=== PATIENT | male | born 1990 | race African-American/Black ===

== ENCOUNTER 2020-06-18 11:38 | Emergency (ER) | payer OTHER ==
[2020-06-18 11:49] VITALS: TEMP 98.5; BMI 20.3
[2020-06-18] MEDS ORDERED: predniSONE 20 MG TABLET (UD) PO ONE (12:05)
[2020-06-18] MEDS ORDERED: ALBUTEROL SO4 2.5/IPRATROPIUM 0.5 INH SOL 3 ML VIAL.NEB. NEB ONE (12:13)
[2020-06-18] MEDS ORDERED: predniSONE 20 MG TABLET (UD) ONE (12:13)
--- NOTE | 2020-06-18 12:16 | PDOC ---
*Physical Exam - Vital Signs Last Vital Signs Temp Pulse Resp BP Pulse Ox 98.5 F 88 22 H 138/92 100 06/18/20 11:43 06/18/20 11:43 06/18/20 11:43 06/18/20 11:43 06/18/20 11:43 Medical Decision Making - Critical Care Time Total Critical Care Time (minutes): 30 Critical Care Statement: The care of this patient involved high complexity decision making to prevent further life threatening deterioration of the patient's condition and/or to evaluate & treat vital organ system(s) failure or risk of failure. - Medical Decision Making 06/18/20 12:14 30y/o M p/w moderate to severe asthma exacerbation without associated hypoxia. r/o superimposed infection. nebs, steroids cxr reassess Discharge - Discharge Information Problems reviewed: Yes Clinical Impression/Diagnosis: Asthma exacerbation Qualifiers: Asthma severity: moderate Asthma persistence: unspecified Qualified Code(s): J45.901 - Unspecified asthma with (acute) exacerbation - Follow up/Referral Referrals: Tamir Santos MD [Primary Care Provider] - - Patient Discharge Instructions - Post Discharge Activity
--- OUTSIDE RECORDS SUMMARY | 2020-06-18 12:19 | XMS ---
:1990 Author Organization [facility] Care Team Providers Name Role Phone ED STAFF PHYSICIAN, STAFF Unavailable Unavailable ED STAFF PHYSICIANCEZAR Unavailable Unavailable ED STAFF PHYSICIANSAI Unavailable Unavailable Re-disclosure Warning The records that you are about to access may contain information from federally- assisted alcohol or drug abuse programs. If such information is present, then the following federally mandated warning applies: This information has been disclosed to you from records protected by federal confidentiality rules (42 CFR part 2). The federal rules prohibit you from making any further disclosure of this information unless further disclosure is expressly permitted by the written consent of the person to whom it pertains or as otherwise permitted by 42 CFR part 2. A general authorization for the release of medical or other information is NOT sufficient for this purpose. The Federal rules restrict any use of the information to criminally investigate or prosecute any alcohol or drug abuse patient.The records that you are about to access may contain highly sensitive health information, the redisclosure of which is protected by Article 27-F of the [place] State Public Health law. If you continue you may haveaccess to information: Regarding HIV / AIDS; Provided by facilities licensed or operated by the [facility] Office of Mental Health; or Provided by the [facility] Office for People With Developmental Disabilities. If such information is present, then the following [facility] mandated warning applies: This information has been disclosed to you from confidential records which are protected by state law. State law prohibits you from making any further disclosure of this information without the specific written consent of the person to whom it pertains, or as otherwise permitted by law. Any unauthorized further disclosure in violation of state law may result in a fine or detention sentence or both. A general authorization for the release of medical or other information is NOT sufficient authorization for further disclosure. Encounters Encounter Providers Location Date Indications Data Source(s ) Emergency Attender: CEZAR ED H 06/13/2020 [facility] STAFF 12:48:00 PM EDT Medical C enter PHYSICIANAttender: - 06/13/2020 STAFF ED STAFF 08:48:00 PM EDT PHYSICIANAdmitter: [facility] ED STAFF PHYSICIANReferrer: STAFF ED STAFF PHYSICIAN Patient discharged. Emergency Attender: ANI ED STAFF H 08/22/2019 12:41:00 AM [facility] PHYSICIANAttender: STAFF ED EST - 08/22/2019 Medical Center STAFF PHYSICIANAdmitter: 01:54:00 AM EST [facility] ED STAFF PHYSICIAN Patient discharged. Insurance Providers Payer name Policy type Policy ID Covered Covered constitution party's Policy P toya / Coverage constitution party ID relationship to Lucia Inf ormation type lucia MVP [place]ICA[place] [id number] HMO O MVP/HHP O [id number] 01 [id number] MVP/HHP O [id number] 01 [id number] Problems, Conditions, and Diagnoses Code Display Name Description Problem Type Effective Data Dates Source(s) J45.909 Unspecified UNSPECIFIED Diagnosis 06/13/[address] [facility] asthma, ASTHMA, 12:48:00 PM Medical uncomplicated UNCOMPLICATED EDT Center R06.03 Acute respiratory ACUTE RESPIRATORY Diagnosis 06/13/2020 [facility] distress DISTRESS 12:48:00 PM Medical EDT Center Y99.9 Unspecified UNSPECIFIED Diagnosis 08/22/2019 [facility] external cause EXTERNAL CAUSE 12:41:00 AM Medic al status STATUS EST Center Y92.[address] IN UNSP Diagnosis 08/22/2019 [facility] in unspecified NON-INSTITUT 12:41:00 AM Medical non-institutional (PRIVATE) EST Center (private) RESIDENCE PLACE residence as the place of occurrence of the external cause Y93.9 Activity, ACTIVITY, Diagnosis 08/22/2019 [facility] unspecified UNSPECIFIED 12:41:00 AM Medical EST Center W01.0XXA Fall on same level FALL SAME LEV FROM Diagnosis 9 [facility] from slipping, SLIP/TRIP W/O 12:41:00 AM Medica l tripping and STRIKE AGAINST EST Center stumbling without OBJECT, INIT subsequent striking against object, initial encounter S01.112A Laceration without LACERATION W/O FB Diagnosis 08/22/2019 [facility] foreign body of OF LEFT EYELID AND 12:41:00 AM Medical left eyelid and PERIOCULAR AREA, EST Jovanny ter periocular area, INIT initial encounter S01.119A Laceration without LACERATION W/O FB Diagnosis 08/22/2019 [facility] foreign body of OF UNSP EYELID AND 12:41:00 AM Medical unspecified eyelid PERIOCULAR AREA, EST Center and periocular INIT area, initial encounter Results ID Date Data Source HematologyRou.[id number] 06/13/2020 02:34:00 PM EDT [facility] 0400 Name Value Range Interpretation Description Data Sup porting Code Source(s) Document(s ) Hemoglobin 13.5-17. Below low normal <content [facility] [Mass/volume] in 5 styleCode="Bold Kermit Blood ">Hemoglobin Medical </content>13.4 Center G/DL L<content styleCode="Ital ics"> (13.5-17.5 G/DL)</content> Leukocytes 4.4-11.0 <content [facility] [#/volume] in styleCode="Bold Kermit Blood by ">White Blood Medical Automated count Cell Count Center </content>5.50 KCUMM<content styleCode="Ital ics"> (4.4-11.0 KCUMM)</content > Erythrocytes 4.4-5.9 <content [facility] [#/volume] in styleCode="Bold Kermit Blood by ">Red Blood Medical Automated count Cell Count Center </content>4.43 MCUMM<content styleCode="Ital ics"> (4.4-5.9 MCUMM)</content > Erythrocyte mean 80.0-100 <content [facility] corpuscular .0 styleCode="Bold Kermit volume [Entitic ">Mean Medical volume] by Corpuscular Center Automated count Volume </content>89.6 FL<content styleCode="Ital ics"> (80.0-100.0 FL)</content> Hematocrit 41.0-53. Below low normal <content [facility] [Volume 0 styleCode="Bold Kermit Fraction] of ">Hematocrit Medical Blood by </content>39.7 Center Automated count % L<content styleCode="Ital ics"> (41.0-53.0 %)</content> Erythrocyte mean 26.0-34. <content [facility] corpuscular 0 styleCode="Bold Kermit hemoglobin ">Mean Medical [Entitic mass] Corposcular Center by Automated Hemoglobin count </content>30.2 PG<content styleCode="Ital ics"> (26.0-34.0 PG)</content> Erythrocyte mean 32.0-37. <content [facility] corpuscular 0 styleCode="Bold Kermit hemoglobin ">Mean Corpus. Medical concentration Hgb Center [Mass/volume] by Concentration Automated count (MCHC) </content>33.8 G/DL<content styleCode="Ital ics"> (32.0-37.0 G/DL)</content> UNK 0 <content Saint styleCode="Bold Kermit ">Nucleated Red Medical Blood Cell Center </content>0.0 /100<content styleCode="Ital ics"> (0 /100)</content> Platelets 130-400 <content Saint [#/volume] in styleCode="Bold Kermit Blood by ">Platelet Medical Automated count Count Center </content>152 KCUMM<content styleCode="Ital ics"> (130-400 KCUMM)</content > Platelet mean 8.0-11.0 <content Saint volume [Entitic styleCode="Bold Kermit volume] in Blood ">Mean Platelet Medical by Automated Volume Center count </content>9.6 FL<content styleCode="Ital ics"> (8.0-11.0 FL)</content> Erythrocyte 11.5-14. <content [facility] distribution 5 styleCode="Bold Kermit width [Ratio] by ">Red Cell Medical Automated count Distribution Center Width </content>12.9 %<content styleCode="Ital ics"> (11.5-14.5 %)</content> UNK 0.0 <content Saint styleCode="Bold Kermit ">Nucleated Red Medical Blood Cell Center Count </content>0.00 KCUMM<content styleCode="Ital ics"> (0.0 KCUMM)</content > ID Date Data Source Liver 06/13/2020 01:09:00 PM EDT [facility] Profile.[id number] Name Value Range Interpretation Description Data Sup porting Code Source(s) Document(s ) Aspartate 17-59 Above high <content [facility] aminotransferase normal styleCode="Bold"> [facility] hs [Enzymatic Aspartate Medical activity/volume] Aminotransferase Center in Serum or Plasma (AST) </content>62 IU/L H<content styleCode="Italic s"> (17-59 IU/L)</content> Bilirubin.total 0.2-1.3 <content [facility] [Mass/volume] in styleCode="Bold"> Paddy hs Serum or Plasma Bilirubin Total Medical </content>0.9 Center MG/DL<content styleCode="Italic s"> (0.2-1.3 MG/DL)</content> Alkaline 38-126 <content [facility] phosphatase styleCode="Bold"> Kermit [Enzymatic Alkaline Medical activity/volume] Phosphatase (ALP) Cente r in Serum or Plasma </content>68 IU/L<content styleCode="Italic s"> (38-126 IU/L)</content> UNK 0.0-0.3 <content Saint styleCode="Bold"> Kermit Bilirubin, Direct Medical </content>< 0.2 Center MG/DL<content styleCode="Italic s"> (0.0-0.3 MG/DL)</content> Alanine 7-50 <content [facility] aminotransferase styleCode="Bold"> P[facility] hs [Enzymatic Alanine Medical activity/volume] Aminotransferase Center in Serum or Plasma (ALT) </content>26 IU/L<content styleCode="Italic s"> (7-50 IU/L)</content> Albumin 3.5-5.0 Above high <content [facility] [Mass/volume] in normal styleCode="Bold"> [facility] hs Serum or Plasma Albumin Medical </content>5.3 Center G/DL H<content styleCode="Italic s"> (3.5-5.0 G/DL)</content> ID Date Data Source HematologyRou.[id number] 06/13/2020 01:09:00 PM EDT [facility] 0400 Name Value Range Interpretation Description Data Sup porting Code Source(s) Document(s ) Leukocytes <content [facility] [#/volume] in styleCode="Bold" Kermit Blood by >White Blood Medical Automated count Cell Count Center </content>Test not performed. KCUMM (Reference Range: not available)
Erythrocytes <content Saint [#/volume] in styleCode="Bold" Kermit Blood by >Red Blood Cell Medical Automated count Count Center </content>Test not performed. MCUMM (Reference Range: not available)
Hemoglobin <content Saint [Mass/volume] in styleCode="Bold" Av s Blood >Hemoglobin Medical </content>Test Center not performed. G/DL (Reference Range: not available)
Erythrocyte mean <content [facility] corpuscular styleCode="Bold" Kermit volume [Entitic >Mean Medical volume] by Corpuscular Center Automated count Volume </content>Test not performed. FL (Reference Range: not available)
Erythrocyte mean <content [facility] corpuscular styleCode="Bold" Kermit hemoglobin >Mean Medical [Entitic mass] Corposcular Center by Automated Hemoglobin count </content>Test not performed. PG (Reference Range: not available)
Hematocrit <content Saint [Volume styleCode="Bold" Kermit Fraction] of >Hematocrit Medical Blood by </content>Test Center Automated count not performed. % (Reference Range: not available)
Erythrocyte mean <content [facility] corpuscular styleCode="Bold" Kermit hemoglobin >Mean Corpus. Medical concentration Hgb Center [Mass/volume] by Concentration Automated count (MCHC) </content>Test not performed. G/DL (Reference Range: not available)
Platelets <content Saint [#/volume] in styleCode="Bold" Kermit Blood by >Platelet Count Medical Automated count </content>Test Center not performed. KCUMM (Reference Range: not available)
UNK <content Saint styleCode="Bold" Kermit >Nucleated Red Medical Blood Cell Count Center </content>Test not performed. KCUMM (Reference Range: not available)
Erythrocyte <content Saint distribution styleCode="Bold" Kermit width [Ratio] by >Red Cell Medical Automated count Distribution Center Width </content>Test not performed. % (Reference Range: not available)
Platelet mean <content Saint volume [Entitic styleCode="Bold" Kermit volume] in Blood >Mean Platelet Medical by Automated Volume Center count </content>Test not performed. FL (Reference Range: not available)
UNK <content Saint styleCode="Bold" Kermit >Nucleated Red Medical Blood Cell Center </content>Test not performed. /100 (Reference Range: not available)
UNK <content Saint styleCode="Bold" Kermit >Immature Medical Platelet Center Fraction </content>Test not performed. % (Reference Range: not available)
ID Date Data Source GFR(Creatinine).[id number] 06/13/2020 01:09:00 PM EDT [facility] 0-0400 Name Value Range Interpretation Code Description Data Kezia rce(s) Supporting Document(s ) UNK > 60 <content [facility] styleCode="Bold"> Medical Cent er EGFR </content>126 GFR<content styleCode="Italic s"> (> 60 GFR)</content> ID Date Data Source Coagulation 06/13/2020 01:09:00 PM [facility] ical Center Rout.[id number] EDT Name Value Range Interpretation Description Data Sup porting Code Source(s) Document(s ) INR in 0.80-1.2 <content [facility] Platelet poor 0 styleCode="Bold" K[place] plasma by >INR Medical Coagulation </content>1.03 Center assay #<content styleCode="Itali cs"> (0.80-1.20 #)</content> UNK 9.0-13.0 <content Saint styleCode="Bold" Kermit >Protime Medical </content>11.4 Center SEC<content styleCode="Itali cs"> (9.0-13.0 SEC)</content> aPTT in 25.1-36. Below low normal <content [facility] Platelet poor 5 styleCode="Bold" Kermit plasma by >Partial Medical Coagulation Thromboplastin Center assay Time </content>24.6 SEC L<content styleCode="Itali cs"> (25.1-36.5 SEC)</content> ID Date Data Source [facility].[id number] 06/13/2020 01:09:00 PM EDT [facility] Name Value Range Interpretation Description Data Sup porting Code Source(s) Document(s ) Sodium 137-145 <content [facility] [Moles/volume] in styleCode="Bold"> Láz[facility] phs Serum or Plasma Sodium Medical </content>138 Center MEQ/L<content styleCode="Italic s"> (137-145 MEQ/L)</content> Potassium 3.5-5.3 <content [facility] [Moles/volume] in styleCode="Bold"> Láz[facility] Serum or Plasma Potassium Medical </content>3.9 Center MEQ/L<content styleCode="Italic s"> (3.5-5.3 MEQ/L)</content> Carbon dioxide, 22-30 Below low <content [facility] total normal styleCode="Bold"> Kermit [Moles/volume] in Carbon Dioxide Medical Serum or Plasma </content>20 Center MEQ/L L<content styleCode="Italic s"> (22-30 MEQ/L)</content> Glucose 74-106 <content [facility] [Mass/volume] in styleCode="Bold"> [facility] hs Serum or Plasma Glucose Medical </content>80 Center MG/DL<content styleCode="Italic s"> (74-106 MG/DL)</content> Chloride 98-107 <content [facility] [Moles/volume] in styleCode="Bold"> Lázaro phs Serum or Plasma Chloride Medical </content>102 Center MEQ/L<content styleCode="Italic s"> (98-107 MEQ/L)</content> Creatinine 0.5-1.3 <content [facility] [Mass/volume] in styleCode="Bold"> [facility] hs Serum or Plasma Creatinine Medical </content>0.9 Center MG/DL<content styleCode="Italic s"> (0.5-1.3 MG/DL)</content> UNK 9-20 <content Saint styleCode="Bold"> Kermit BUN </content>10 Medical MG/DL<content Center styleCode="Italic s"> (9-20 MG/DL)</content> Calcium 8.4-10. <content [facility] [Mass/volume] in 2 styleCode="Bold"> [facility] hs Serum or Plasma Calcium Medical </content>9.3 Center MG/DL<content styleCode="Italic s"> (8.4-10.2 MG/DL)</content> UNK > 60 <content Saint styleCode="Bold"> Kermti EGFR Medical </content>126 Center GFR<content styleCode="Italic s"> (> 60 GFR)</content> Alanine 7-50 <content [facility] aminotransferase styleCode="Bold"> [facility] hs [Enzymatic Alanine Medical activity/volume] Aminotransferase Center in Serum or Plasma (ALT) </content>26 IU/L<content styleCode="Italic s"> (7-50 IU/L)</content> Aspartate 17-59 Above high <content [facility] aminotransferase normal styleCode="Bold"> [facility] hs [Enzymatic Aspartate Medical activity/volume] Aminotransferase Center in Serum or Plasma (AST) </content>62 IU/L H<content styleCode="Italic s"> (17-59 IU/L)</content> Alkaline 38-126 <content [facility] phosphatase styleCode="Bold"> Kermit [Enzymatic Alkaline Medical activity/volume] Phosphatase (ALP) Cente r in Serum or Plasma </content>68 IU/L<content styleCode="Italic s"> (38-126 IU/L)</content> Bilirubin.total 0.2-1.3 <content [facility] [Mass/volume] in styleCode="Bold"> [facility] hs Serum or Plasma Bilirubin Total Medical </content>0.9 Center MG/DL<content styleCode="Italic s"> (0.2-1.3 MG/DL)</content> Albumin 3.5-5.0 Above high <content Saint [Mass/volume] in normal styleCode="Bold"> [facility] hs Serum or Plasma Albumin Medical </content>5.3 Center G/DL H<content styleCode="Italic s"> (3.5-5.0 G/DL)</content> ID Date Data Source CHMROUTINECCDA.[id number] 06/13/2020 01:05:00 PM EDT [facility] -0400 Name Value Range Interpretation Description Data Sup porting Code Source(s) Document(s ) Lactate 0.7-2.0 Above upper panic <content [place] s [Mass/volum limits styleCode="Bold Medical e] in Serum ">Lactic Acid Center or Plasma </content><cont ent styleCode="Bold ">3.3 MMOLL HH</content><co ntent styleCode="Ital ics"> (0.7-2.0 MMOLL)</content > Procedure Social History Code Duration Value Status Description Data Source(s ) Smoking 06/13/2020 Occasional Smoker completed Occasional Smoker [facility] 12:55:00 PM EDT Medical C enter Smoking 06/13/2020 Occasional Smoker completed Occasional Smoker [facility] 12:55:00 PM EDT Medical C enter Smoking 06/13/2020 Occasional Smoker completed Occasional Smoker [facility] 12:50:00 PM EDT Medical C enter Smoking 08/22/2019 Occasional Smoker completed Occasional Smoker [facility] 01:17:00 AM EST Medical C enter Vital Signs ID Date Data Source UNK Name Value Range Interpretation Code Description Data Source(s) Body temperature 36.043154 36.531078 Annelise [facility] Respiratory rate 18 /min 18 /min [facility] Oxygen saturation 97 % 97 % [facility] Victor Manuel osephs in Arterial blood Medical Center by Pulse oximetry Heart rate 92 /min 92 /min [facility] Diastolic blood 88 mm[Hg] 88 mm[Hg] [facility] pressure [facility] Center Systolic blood 144 mm[Hg] 144 mm[Hg] [facility] pressure [facility] Center Respiratory rate 18 /min 18 /min [facility] Oxygen saturation 97 % 97 % [facility] blood [facility] by Pulse oximetry Heart rate 88 /min 88 /min [facility] Diastolic blood 90 mm[Hg] 90 mm[Hg] [facility] Systolic blood 154 mm[Hg] 154 mm[Hg] [facility] Respiratory rate 20 /min 20 /min [facility] Oxygen saturation 100 % 100 % [facility] in Arterial blood [facility] Center by Pulse oximetry Heart rate 92 /min 92 /min [facility] Diastolic blood 90 mm[Hg] 90 mm[Hg] [facility] Systolic blood 144 mm[Hg] 144 mm[Hg] [facility] Heart rate 138 /min 138 /min [facility] Respiratory rate 24 /min 24 /min [facility] Oxygen saturation 100 % 100 % [facility] blood [facility] by Pulse oximetry Heart rate 100 /min 100 /min [facility] Diastolic blood 91 mm[Hg] 91 mm[Hg] [facility] Systolic blood 155 mm[Hg] 155 mm[Hg] [facility] Inhaled oxygen 100 % 100 % [facility] Medical [facility] ter Body weight 58.177027 58.490555 kg [facility] Body temperature 36.805235 36.437840 Annelise [facility] Respiratory rate 30 /min 30 /min [facility] Oxygen saturation 100 % 100 % [facility] blood [facility] by Pulse oximetry Inhaled oxygen 100 % 100 % [facility] Medical [facility] ter Diastolic blood 72 mm[Hg] 72 mm[Hg] [facility] Systolic blood 150 mm[Hg] 150 mm[Hg] [facility] Body temperature 36.933507 36.011142 Annelise [facility] Respiratory rate 16 /min 16 /min [facility] Oxygen saturation 98 % 98 % [facility] blood [facility] by Pulse oximetry Heart rate 74 /min 74 /min [facility] Diastolic blood 88 mm[Hg] 88 mm[Hg] [facility] Systolic blood 134 mm[Hg] 134 mm[Hg] [facility] Body temperature 36.556708 36.503803 Annelise [facility] Kermit [facility] Respiratory rate 20 /min 20 /min [facility] Oxygen saturation 99 % 99 % [facility] Victor Manuel holt in Arterial blood Medical Center by Pulse oximetry Heart rate 104 /min 104 /min [facility] Diastolic blood 98 mm[Hg] 98 mm[Hg] [facility] pressure [facility] Center Systolic blood 151 mm[Hg] 151 mm[Hg] [facility] pressure [facility]
[2020-06-18] MEDS: ALBUTEROL SO4 2.5/IPRATROPIUM 0.5 INH SOL 3 ML VIAL.NEB. NEB SCH ×4 (12:22→13:22)
--- NOTE | 2020-06-18 12:46 | PDOC ---
History of Present Illness - General Chief Complaint: Asthma Stated Complaint: DIFF BREATHING/ASTHMA Time Seen by Provider: 06/18/20 11:59 History Source: Patient Exam Limitations: No Limitations - History of Present Illness Initial Comments: 06/18/20 12:42 Patient is a 30-year-old male who presents to the ED with complaint of an asthma exacerbation that started this morning. He stayed at a friend's house who has a cat and he is allergic to cats. He states he was partying last night and everybody was smoking in the house. The patient states that he tried to use his albuterol MDI but it has not been helping. A similar asthma exacerbation happened last week and he went to [facility] and states he had nothing done. The patient states that they did not give him a new albuterol MDI and his inhaler was old. He denies any fevers or chills. He denies any cough. He states he is having trouble getting a deep breath in. He denies any known COVID contacts. Past History - Medical History Allergies/Adverse Reactions: Allergies Allergy/AdvReac Type Severity Reaction Status Date / Time lactose AdvReac Verified 06/18/20 11:43 Home Medications: Ambulatory Orders Pantoprazole Sodium [Protonix] 40 mg PO ONCE #20 tablet.ec 10/29/14 Sulfamethoxazole/Trimethoprim [Bactrim *Ds*] 1 tab PO BID #14 tablet 10/29/14 Albuterol Sulfate [Albuterol Sulfate Hfa] 2 puff IH Q4H PRN #1 hfa.aer.ad 06/18/20 predniSONE [Deltasone -] 60 mg PO DAILY #12 tablet 06/18/20 Asthma: Yes COPD: No - Psycho-Social/Smoking History Smoking History: Current every day smoker Have you smoked in the past 12 months: Yes Number of Cigarettes Smoked Daily: 0 Cigars Per Day: 0 Information on smoking cessation initiated: Yes - Substance Abuse Hx (Audit-C & DAST Scrn) How often the patient has a drink containing alcohol: Never Score: In Men: 4 or > Positive; In Women: 3 or > Positive: 0 Screen Result (Pos requires Nsg. Audit-10AR): Negative In the last yr the pt used illegal drug/Rx for NonMed reason: Yes Score: Yes response is considered Positive: 1 Screen Result (Positive result requires Nsg. DAST-10): Positive Review of Systems - Review of Systems Comments:: 06/18/20 12:44 - Review of Systems Able to Perform ROS?: Yes Constitutional: No: Fever, Chills, Loss of Appetite, Night Sweats, Weakness HEENTM: No: Eye Pain, Vision changes, Ear Pain, Throat Pain, Throat Swelling, Mouth Pain, Difficulty Swallowing Respiratory: No: Cough, Shortness of Breath, Wheezing, Sputum Production; positive: Chest tightness, asthma exacerbation Cardiac (ROS): No: Chest Pain, Chest Tightness, Palpitations, Irregular Heart Beat, Edema ABD/GI: No: Nausea, Vomiting, Abdominal Pain, Diarrhea : No Dysuria, No Hematuria, No Frequency, No Urgency Musculoskeletal: No: Muscle Pain, Back Pain, Joint Pain, Muscle Weakness, Neck Pain Integumentary: No: Lesions, Rash Neurological: No: Headache, Numbness, Tingling, Weakness, Speech Difficulties *Physical Exam - Vital Signs Last Vital Signs Temp Pulse Resp BP Pulse Ox 98.5 F 88 22 H 138/92 100 06/18/20 11:43 06/18/20 11:43 06/18/20 11:43 06/18/20 11:43 06/18/20 11:43 - Physical Exam 06/18/20 12:44 - Physical Exam General Appearance: Nourished, Appropriately Dressed, No Distress HEENT: EOMI, Normal Voice, Hearing Grossly Normal Neck: Supple, No Lymphadenopathy (R), No Lymphadenopathy (L), No Rigidity, No Decreased range of motion Respiratory/Chest: Lungs Clear, Normal Breath Sounds. No Respiratory Distress, No Accessory Muscle Use; no wheezing auscultated but slight rhonchi appreciated at the bilateral bases. Poor inspiratory effort. Cardiovascular: Regular Rhythm, Regular Rate, S1, S2 Gastrointestinal/Abdominal: Normal Bowel Sounds, Soft. Non-tender, No Guarding, No Rebound, No Rigidity Musculoskeletal: Normal Inspection. No Decreased Range of Motion Extremity: Normal Capillary Refill, Normal Inspection Integumentary: Normal Color, Dry. No Rash Neurologic: special educator II-XII NML intact, Fully Oriented, Alert, Normal Mood/Affect, Normal Response ED Treatment Course - RADIOLOGY Radiology Studies Ordered: Category Date Time Status CHEST PA & LAT [RAD] Stat Radiology 06/18/20 12:05 Completed - Medications Given in the ED: ED Medications Discontinued Medications Generic Name Dose Route Start Last Admin Trade Name Honey PRN Reason Stop Dose Admin Prednisone 60 mg 06/18/20 12:05 06/18/20 12:22 Deltasone - PO 06/18/20 12:06 60 mg ONCE ONE Administration Medical Decision Making - Medical Decision Making 06/18/20 12:45 Assessment: Patient is a 30-year-old male with an asthma exacerbation. Plan: -Parkb's x4 -Prednisone 60 mg p.o. given -Chest x-ray ordered -We will reassess 06/18/20 13:24 Patient's chest x-ray read by radiology as no acute pathology. He is gotten nebulizer treatments in the ED and 60 mg of prednisone. He states he is starting to feel better and his chest feels less tight. He would like to go home and get some rest. A prescription for an albuterol MDI and remaining 4 days of prednisone have been sent to the pharmacy. The patient has been given strict return precautions. He understands and agrees this treatment plan and he is stable for discharge. Discharge - Discharge Information Problems reviewed: Yes Clinical Impression/Diagnosis: Asthma exacerbation Qualifiers: Asthma severity: moderate Asthma persistence: unspecified Qualified Code(s): J45.901 - Unspecified asthma with (acute) exacerbation Condition: Stable Disposition: HOME - Additional Discharge Information Prescriptions: Albuterol Sulfate [Albuterol Sulfate Hfa] 2 puff IH Q4H PRN #1 hfa.aer.ad PRN Reason: Wheezing predniSONE [Deltasone -] 60 mg PO DAILY #12 tablet - Follow up/Referral Referrals: Tamir Santos MD [Primary Care Provider] - Call tomorrow - Patient Discharge Instructions Patient Printed Discharge Instructions: Asthma -- Adult Additional Instructions: Get plenty of rest and avoid allergens and smoke to help resolve your asthma exacerbation. Take the prednisone as prescribed and start tomorrow, 06/19/2020, as you were given your first dose in the emergency department today. Be sure to follow-up with your primary doctor within 1 to 2 days for repeat evaluation. Return to the emergency department for any worsening chest tightness, shortness of breath, cough, wheezing, or any other worsening symptoms. - Post Discharge Activity Work/Back to School Note: Back to Work
[2020-06-18 13:48] VITALS: BP 114/72; PULSE 89
== END 2020-06-18 13:35 | disposition home or self-care (01) ==
LOC: JER 11:38
PROC: 3E0F7GC Introduction of Other Therapeutic Substance into Respiratory Tract, Via Natural or Artificial Opening (ICD-10-PCS; principal; 2020-06-18)
DX: J45.901 Unspecified asthma with (acute) exacerbation (principal)
CPT/HCPCS: 71046-TC-FY; 99291

== ENCOUNTER 2024-04-02 16:34 | Emergency (ER) | payer OTHER ==
[2024-04-02 16:40] VITALS: BP 141/85; PULSE 61; RESP 18; TEMP 97.5; BMI 19.4
[2024-04-02] MEDS ORDERED: AMOX TR/POT CLAV 875MG/125MG TABLETS (FP) ONE (18:26)
[2024-04-02] MEDS: AMOX TR/POT CLAV 875MG/125MG TABLETS (FP) PO ONE (18:28)
== END 2024-04-02 18:35 | disposition home or self-care (01) ==
LOC: JER 16:34 → JERFT 16:34
DX: R68.84 Jaw pain (principal); K04.7 Periapical abscess without sinus
CPT/HCPCS: 99283-25